=== PATIENT | male | born 1990 | race Two or more races ===

== ENCOUNTER 2022-10-15 20:51 | Inpatient (IN) | payer BC ==
[~2022-10-15] VITALS: Ht 167.6 cm; Wt 77.0 kg
[~2022-10-15 20:51] MED LIST: PRE5T PO
[2022-10-15] MEDS ORDERED: normal saline 1000ML IV soln IVB ONE ×2 (21:00→22:35)
[2022-10-15 21:39] LABS: BASOPHILS # (AUTO) 0.1 X10'3 (0-0.2); EOSINOPHILS # (AUTO) 0.2 X10'3 (0-0.9); EOSINOPHILS % (AUTO) 1.5 % (0-6); HEMOGLOBIN 9.8 g/dl (14.0-17.9); LYMPHOCYTES # (AUTO) 4.2 X10'3 (1.1-4.8); MONOCYTES # (AUTO) 2.4 X10'3 (0-0.9); PLATELET COUNT 729 X10'3 (140-440)
[2022-10-15 21:42] LABS: BASOPHILS % (AUTO) 0.4 % (0-1); LYMPHOCYTES % (AUTO) 25.1 % (21-51); MEAN CORPUSCULAR HEMOGLOBIN 19.2 PG (27.0-31.0); MEAN CORPUSCULAR HGB CONC 30.5 g/dL (33.0-36.5); MEAN PLATELET VOLUME 6.3 FL (7.4-10.4); MONOCYTES % (AUTO) 14.2 % (2-12); NEUTROPHILS # (AUTO) 9.9 X10'3 (1.8-7.7); NEUTROPHILS % (AUTO) 58.8 % (42-75); RED BLOOD COUNT 5.09 X10'6 (4.70-6.10); RED CELL DISTRIBUTION WIDTH 17.4 % (11.5-14.5); WHITE BLOOD COUNT 16.8 X10'3 (4.5-11.0)
[2022-10-15 21:52] LABS: ALANINE AMINOTRANSFERASE 30 U/L (12-78); ALBUMIN/GLOBULIN RATIO 0.7 (1.1-1.5); ALKALINE PHOSPHATASE 162 IU/L (46-116); ANION GAP 10 (8-16); ASPARTATE AMINO TRANSFERASE 18 U/L (10-37); BILIRUBIN,TOTAL 0.3 MG/DL (0.1-1.0); BLOOD UREA NITROGEN 22 MG/DL (7-18); BUN/CREATININE RATIO 19.5 (10.0-20.0); CALCIUM 8.7 MG/DL (8.5-10.1); CHLORIDE 99 MMOL/L (99-107); CREATININE 1.13 MG/DL (0.60-1.10); GLUCOSE 106 MG/DL (70-104); POTASSIUM 3.3 MMOL/L (3.5-5.1); SODIUM 136 MMOL/L (135-145); TOTAL CARBON DIOXIDE 27.2 MMOL/L (24-32); TOTAL PROTEIN 7.5 G/DL (6.4-8.2); eGFR 76 ML/MIN
[2022-10-15 22:17] LABS: TOTAL CELLS COUNTED 100
[2022-10-15 22:18] LABS: ANISOCYTOSIS 1+; MICROCYTOSIS 2+; PLATELET ESTIMATE INCREASED
[2022-10-15 22:20] LABS: POLYCHROMASIA FEW
[2022-10-15] MEDS ORDERED: acetaminophen 325mg tablet PO ONE (22:35)
[2022-10-15 22:44] LABS: CLARITY,URINE CLEAR (Clear); COLOR,URINE YELLOW (Yellow); GLUCOSE, URINE NEGATIVE (Neg); KETONES,URINE TRACE mg/dl (Neg); LEUKOCYTE ESTERASE ,URINE NEGATIVE (Neg); NITRITES, URINE NEGATIVE (Neg); OCCULT BLOOD,URINE NEGATIVE (Neg); PROTEIN,URINE NEGATIVE (Neg); UROBILINOGEN,URINE 0.2 E.U/dL (0.2-1.0)
[2022-10-15 22:45] LABS: UA COLLECTION TYPE CLN CATCH MIDSTREAM
[2022-10-15] MEDS ORDERED: acetaminophen 325mg tablet PO PRN (23:05)
[2022-10-15] MEDS ORDERED: ondansetron/PF 4mg/2ml inj IV PRN (23:05)
[2022-10-15] MEDS ORDERED: methylPREDNISolone sod succ 125mg/2ml vial IV ONE (23:10)
[2022-10-15] MEDS ORDERED: PEG 3350/Na sulf,bicarb,Cl/KCl oral sol 4 liter bottle PO ONE (23:10)
[2022-10-15] MEDS: potassium Cl 20mEq in NS 1,000 ML IV SCH (23:47)
[2022-10-16] MEDS ORDERED: MESA1.2T3 PO (01:39)
[2022-10-16 04:02] LABS: EOSINOPHILS # (AUTO) 0.1 X10'3 (0-0.9); PLATELET COUNT 619 X10'3 (140-440)
[2022-10-16 04:04] LABS: BASOPHILS % (AUTO) 0.1 % (0-1); EOSINOPHILS % (AUTO) 0.4 % (0-6); LYMPHOCYTES # (AUTO) 1.7 X10'3 (1.1-4.8); LYMPHOCYTES % (AUTO) 10.7 % (21-51); MEAN PLATELET VOLUME 6.2 FL (7.4-10.4); MONOCYTES # (AUTO) 0.7 X10'3 (0-0.9); MONOCYTES % (AUTO) 4.7 % (2-12); NEUTROPHILS # (AUTO) 13.1 X10'3 (1.8-7.7); NEUTROPHILS % (AUTO) 84.1 % (42-75); WHITE BLOOD COUNT 15.5 X10'3 (4.5-11.0)
[2022-10-16 04:14] LABS: ALANINE AMINOTRANSFERASE 47 U/L (12-78); ALBUMIN 2.7 G/DL (3.4-5.0); ALBUMIN/GLOBULIN RATIO 0.7 (1.1-1.5); ALKALINE PHOSPHATASE 126 IU/L (46-116); ANION GAP 5 (8-16); ASPARTATE AMINO TRANSFERASE 24 U/L (10-37); BILIRUBIN,TOTAL 0.3 MG/DL (0.1-1.0); BLOOD UREA NITROGEN 16 MG/DL (7-18); CALCIUM 8.2 MG/DL (8.5-10.1); CHLORIDE 105 MMOL/L (99-107); CREATININE 1.07 MG/DL (0.60-1.10); GLUCOSE 195 MG/DL (70-104); POTASSIUM 4.5 MMOL/L (3.5-5.1); SODIUM 139 MMOL/L (135-145); TOTAL CARBON DIOXIDE 28.7 MMOL/L (24-32); TOTAL PROTEIN 6.6 G/DL (6.4-8.2); eGFR 81 ML/MIN
[2022-10-16] MEDS ORDERED: PRED20TA PO (04:52)
[2022-10-16 05:13] LABS: HEMOGLOBIN 8.5 g/dl (14.0-17.9); RED BLOOD COUNT 4.19 X10'6 (4.70-6.10)
[2022-10-16 05:14] LABS: MEAN CORPUSCULAR HEMOGLOBIN 20.4 PG (27.0-31.0); MEAN CORPUSCULAR HGB CONC 32.8 g/dL (33.0-36.5); MEAN CORPUSCULAR VOLUME 62.1 FL (78-98); RED CELL DISTRIBUTION WIDTH 16.3 % (11.5-14.5)
[2022-10-16] MEDS: mesalamine 1.2gm ER tablet PO SCH ×4 (08:57→20:14)
[2022-10-16] MEDS: metroNIDAZOLE-Flagyl 500mg/NS 100 ML IV SCH ×2 (08:57→15:47)
[2022-10-16] MEDS: methylPREDNISolone sod succ 125mg/2ml vial IV SCH ×2 (08:57→15:47)
[2022-10-16] MEDS: potassium Cl 20mEq in NS 1,000 ML IV SCH (09:09)
[2022-10-16] MEDS: ciprofloxacin lact 400MG/200ML 200 ML IV SCH ×2 (10:06→20:12)
[2022-10-16 11:39] VITALS: BP 123/76
--- NOTE | 2022-10-16 13:08 | NUR ---
patient received from ER at [id number], settled into room. continues to have liquid loose stools. sample sent for testing, seen by Dr romano. will continue to monitor
[2022-10-16 15:19] LABS: C DIFF SPECIMEN=DIARRHEA? ACCEPTABLE; C DIFFICILE TOXINS A&B NEGATIVE (Neg)
[2022-10-16] MEDS ORDERED: FLU VACC QS2022-23(6MOS UP)/PF 60 MCG/0.5 ML SYRINGE IMVAC ONE (16:10)
--- NOTE | 2022-10-16 18:47 | NUR ---
sample negative for cdiff. patient out of isolation per charge nurse carlita.
[2022-10-16 22:00] VITALS: BP 116/75
[2022-10-17] MEDS: methylPREDNISolone sod succ 125mg/2ml vial IV SCH ×3 (00:26→16:22)
[2022-10-17] MEDS: metroNIDAZOLE-Flagyl 500mg/NS 100 ML IV SCH ×3 (00:26→16:22)
[2022-10-17] MEDS: potassium Cl 20mEq in NS 1,000 ML IV SCH ×3 (00:26→11:48)
--- NOTE | 2022-10-17 05:20 | NUR ---
patient barely slept this night, up to BR x7 times watery brown stool. will continue to monitor
--- NOTE | 2022-10-17 05:58 | NUR ---
Problems reprioritized. Patient report given, questions answered & plan of care reviewed with Juana BAHENA.
[2022-10-17 06:15] LABS: ALANINE AMINOTRANSFERASE 35 U/L (12-78); ALBUMIN 2.5 G/DL (3.4-5.0); ALBUMIN/GLOBULIN RATIO 0.7 (1.1-1.5); ALKALINE PHOSPHATASE 106 IU/L (46-116); ANION GAP 6 (8-16); ASPARTATE AMINO TRANSFERASE 10 U/L (10-37); BILIRUBIN,TOTAL 0.5 MG/DL (0.1-1.0); BLOOD UREA NITROGEN 9 MG/DL (7-18); CALCIUM 8.5 MG/DL (8.5-10.1); CHLORIDE 105 MMOL/L (99-107); CREATININE 0.82 MG/DL (0.60-1.10); GLUCOSE 111 MG/DL (70-104); POTASSIUM 3.8 MMOL/L (3.5-5.1); SODIUM 138 MMOL/L (135-145); TOTAL CARBON DIOXIDE 26.8 MMOL/L (24-32); TOTAL PROTEIN 6.3 G/DL (6.4-8.2); eGFR > 90 ML/MIN
[2022-10-17 06:16] LABS: BASOPHILS % (AUTO) 0.3 % (0-1); EOSINOPHILS # (AUTO) 0.1 X10'3 (0-0.9); EOSINOPHILS % (AUTO) 0.8 % (0-6); HEMOGLOBIN 8.2 g/dl (14.0-17.9); MEAN CORPUSCULAR HEMOGLOBIN 19.4 PG (27.0-31.0); WHITE BLOOD COUNT 13.7 X10'3 (4.5-11.0)
[2022-10-17 06:19] LABS: HEMATOCRIT 26.9 % (42.0-52.0); LYMPHOCYTES # (AUTO) 3.2 X10'3 (1.1-4.8); LYMPHOCYTES % (AUTO) 23.5 % (21-51); MEAN CORPUSCULAR HGB CONC 30.4 g/dL (33.0-36.5); MEAN CORPUSCULAR VOLUME 63.7 FL (78-98); MEAN PLATELET VOLUME 6.3 FL (7.4-10.4); MONOCYTES # (AUTO) 1.9 X10'3 (0-0.9); MONOCYTES % (AUTO) 13.8 % (2-12); NEUTROPHILS # (AUTO) 8.4 X10'3 (1.8-7.7); NEUTROPHILS % (AUTO) 61.6 % (42-75); PLATELET COUNT 635 X10'3 (140-440); RED BLOOD COUNT 4.22 X10'6 (4.70-6.10); RED CELL DISTRIBUTION WIDTH 17.4 % (11.5-14.5)
--- NOTE | 2022-10-17 06:57 | NUR ---
Problems reprioritized. Patient report given, questions answered & plan of care reviewed with Nehal BAHENA.
[2022-10-17 07:08] VITALS: BP 108/68
[2022-10-17] MEDS: mesalamine 1.2gm ER tablet PO SCH ×3 (08:30→16:22)
[2022-10-17] MEDS: ciprofloxacin lact 400MG/200ML 200 ML IV SCH (08:30)
[2022-10-17 11:00] VITALS: BP 113/75
[2022-10-17 18:00] VITALS: BP 150/59
--- NOTE | 2022-10-17 18:00 | NUR ---
Patient in room [facility]. I have received report from annette hawk and had the opportunity to ask questions and assume patient care.
[2022-10-17] MEDS ORDERED: PRED20TA PO (18:03)
[2022-10-17] MEDS ORDERED: LEVO-65 PO (18:04)
[2022-10-17] MEDS ORDERED: METR-159 PO (18:04)
--- NOTE | 2022-10-17 18:52 | NUR ---
Problems reprioritized. Patient report given, questions answered & plan of care reviewed with Suzanne BAHENA.
--- NOTE | 2022-10-17 18:54 | NUR ---
pt is stable for dc, iv is intact and removed, all belongings sent with pt, all dc info went over and signed, pt parents at bedside and left with them in a private vehicle.
--- NOTE | 2022-10-17 19:09 | NUR ---
Patient in room [facility]. I have received report from annette hawk and had the opportunity to ask questions and assume patient care.
== END 2022-10-17 18:45 | disposition home or self-care (01) | DRG 387 ==
LOC: ER 21:07 → OBSVTOIN 23:08 → ED HOLD 23:08 → SUR 3N 10-16 07:10
PROVIDERS: ADMIT Internal Medicine; ATTEND Internal Medicine
DX: K51.911 Ulcerative colitis, unspecified with rectal bleeding (principal); D50.9 Iron deficiency anemia, unspecified
CPT/HCPCS: 36415; 74176; 80053; 81003; 83605; 84145; 85007; 85025; 87040; 87045; 87046; 87081; 87324; 87449; 90686; 99285; G0378; J0744; J2930; J3480; J3490; J7030